=== PATIENT | female | born 1955 | race Hispanic/Latino ===

== ENCOUNTER 2025-02-15 15:43 | Emergency (ER) | payer OTHER ==
[~2025-02-15] VITALS: Ht 144.8 cm; Wt 48.5 kg
[~2025-02-15 15:43] MED LIST: AMLODIPINE BESY10 MG PO; ATORVASTATIN CA40 MG PO; CARBAMAZEPINE200 MG PO; CATAPRES-TTS 31 EA TD; CLONIDINE HCL0.2 MG PO; DIOVAN320 MG PO; ECOTRIN81 MG PO; MAGNESIUM OXID400 MG PO; METFORMIN HCL500 M1 PO; OMEPRAZOLE40 MG PO; PENNSAID150 ML TP; PRAVASTATIN SOD40 MG PO; TANZEUM SQ
[2025-02-15 17:36] LABS: BASOPHILS % 0.1 % (0.0-1.0); EOSINOPHILS % 1.1 % (0.0-6.0); LYMPHOCYTES % 7.0 % (18.0-39.1); MONOCYTES % 1.1 % (4.4-11.3); NEUTROPHILS % 90.4 % (38.7-80.0); RED CELL DISTRIBUTION WIDTH 13.8 % (11.7-14.4)
[2025-02-15 17:41] LABS: INR 0.87
[2025-02-15 17:49] LABS: EST GLOMERULAR FILTRATION RATE 48.0 ML/MIN (>=60)
[2025-02-15] MEDS ORDERED: ACETAMINOPHEN 325 MG TAB PO PRN (18:00)
[2025-02-15 18:34] LABS: LEUKOCYTE ESTERASE ,URINE TRACE (NEGATIVE); PROTEIN,URINE DIPSTICK TRACE (NEGATIVE); URINE UROBILINOGEN 0.2 mg/dL (0.2 - 1)
[2025-02-15] MEDS ORDERED: DIATRIZOATE MEGL/DIATRIZOA SOD 30 ML BTL PO ONE (18:43)
[2025-02-15] MEDS: Morphine 4mg INJECTION 4 MG/ML INJ IV STA (18:45)
[2025-02-15] MEDS: SODIUM CHLORIDE 0.9% IV ONE (18:45)
[2025-02-15] MEDS: ACETAMINOPHEN 1000 MG/100 ML IV ONE (18:46)
[2025-02-15] MEDS: ONDANSETRON HCL INJ 2MG/ML 2ML 2 MG/ML VIAL IV STA (18:49)
[2025-02-15] MEDS: SODIUM CHLORIDE 0.9% 1000ML 1,000 ML IV STA ×2 (19:19→19:20)
[2025-02-15 19:23] LABS: EPITHELIAL CELLS,URINE RARE /LPF; WBC,URINE (MAN) 21-50 /HPF (0-5)
[2025-02-15] MEDS ORDERED: IOPAMIDOL 370 MG/ML 100 ML INFUS..BTL INJ ONE ×2 (20:50→20:51)
[2025-02-15 22:15] VITALS: PULSE 75; RESP 22; TEMP 98.1
[2025-02-15] MEDS ORDERED: DICYCLOMINE HCL10 MG PO (23:34)
[2025-02-15] MEDS ORDERED: AMOX TR-K CLV1 EAC2 PO (23:34)
[2025-02-16] VITALS: BP 138/53; PULSE 83; RESP 17; TEMP 98.6; O2SAT 99
== END 2025-02-16 00:03 | disposition home or self-care (01) ==
LOC: ER 17:41
DX: R10.30 Lower abdominal pain, unspecified (principal); K63.2 Fistula of intestine; L98.498 Non-pressure chronic ulcer of skin of other sites with other specified severity; E11.65 Type 2 diabetes mellitus with hyperglycemia; I10 Essential (primary) hypertension
CPT/HCPCS: 36415; 71045; 74177; 80053; 81001; 82550; 83605; 83690; 84484; 85025; 85610; 85730; 87040; 87086; 99284; J0131; J2270; J2405; J2543; J7030; Q9963; Q9967

== ENCOUNTER 2025-02-17 10:42 | Emergency (ER) | payer MEDICARE, OTHER ==
[~2025-02-17] VITALS: Ht 144.8 cm; Wt 47.6 kg
[~2025-02-17 10:42] MED LIST changes: +AMOX TR-K CLV1 EAC2 PO; +DICYCLOMINE HCL10 MG PO
[2025-02-17 11:40] LABS: BASOPHILS % 0.1 % (0.0-1.0); EOSINOPHILS % 2.2 % (0.0-6.0); LYMPHOCYTES % 6.9 % (18.0-39.1); MONOCYTES % 3.2 % (4.4-11.3); NEUTROPHILS % 87.3 % (38.7-80.0); RED CELL DISTRIBUTION WIDTH 14.2 % (11.7-14.4)
[2025-02-17] MEDS: KETOROLAC TROMETHAMINE 30 MG/ML VIAL IV STA (11:53)
[2025-02-17] MEDS: SODIUM CHLORIDE 0.9% 1000ML 1,000 ML IV STA (11:53)
[2025-02-17 12:00] LABS: EST GLOMERULAR FILTRATION RATE 69.0 ML/MIN (>=60)
[2025-02-17 13:11] VITALS: PULSE 71; RESP 16; TEMP 98.3; O2SAT 100
== END 2025-02-17 13:23 | disposition home or self-care (01) ==
LOC: ER 11:27
DX: R10.32 Left lower quadrant pain (principal); K63.2 Fistula of intestine; E11.65 Type 2 diabetes mellitus with hyperglycemia; R35.0 Frequency of micturition; I10 Essential (primary) hypertension
CPT/HCPCS: 36415; 80053; 85025; 99283; J1885; J7030